=== PATIENT | female | born 1945 | race Two or more races ===

== ENCOUNTER 2021-07-30 17:55 | Emergency (ER) | payer OTHER ==
[~2021-07-30] VITALS: Ht 157.5 cm; Wt 83.5 kg
[2021-07-30] MEDS ORDERED: SINEMET 10-1001 EACH PO (18:21)
[2021-07-30] MEDS ORDERED: SINEMET 25-1001 EACH PO (18:21)
[2021-07-30] MEDS ORDERED: CARVEDILOL6.25 MG (18:22)
[2021-07-30] MEDS ORDERED: AVAPRO150 MG PO (18:22)
[2021-07-30] MEDS ORDERED: COMTAN200 MG PO (18:22)
[2021-07-30] MEDS ORDERED: HYDRALAZINE HCL25 MG PO (18:23)
[2021-07-30] MEDS ORDERED: NEURONTIN300 MG (18:23)
[2021-07-30] MEDS ORDERED: SYNTHROID50 MCG PO (18:23)
== END 2021-07-31 00:54 | disposition home or self-care (01) ==
LOC: ER 17:55
DX: R07.9 Chest pain, unspecified (principal); E03.9 Hypothyroidism, unspecified; G20 Parkinson's disease